=== PATIENT | male | born 1975 | race Caucasian/White ===

== ENCOUNTER 2016-10-28 14:40 | Emergency (ER) | payer SELFPAY ==
[~2016-10-28] VITALS: Ht 175.3 cm; Wt 70.0 kg
[~2016-10-28 14:40] MED LIST: CIPR500T4 PO; MOBI15TA PO; ULTR50TA PO
[2016-10-28 14:45] VITALS: BP 133/85; PULSE 73; RESP 16; TEMP 97.8; O2SAT 100
[2016-10-28] MEDS ORDERED: PROPARACAINE HCL 0.5% OPHT SOLN 15 ML BTL EACH EYE ONE (15:45)
--- NOTE | 2016-10-28 15:49 | PD ---
HPI Chief Complaint: Eye Problems/Injury Time Seen by Provider: 15:44 Travel History International Travel<30 days: No Contact w/Intl Traveler<30days: No Traveled to known affect area: No History of Present Illness HPI 41-year-old male presents to the emergency room for evaluation of left eye foreign body sensation, irritation, redness, and tearing. Patient was using a wet trimmer and accidentally hit a rock. He believes a small piece of rock flung up and struck him in the eye. Patient states he saw the large rock coming but could not move in time. He was not wearing safety goggles. He believes there is a hole in his eye. He reports mild blurriness but denies purulent drainage. Patient came straight to the emergency room and has not done anything for his symptoms. He does not wear contacts. [facility] Past Medical History Diminished Hearing: No Musculoskeletal: Yes (chronic Low back pain from sciatica) Tetanus Vaccination: < 5 Years Influenza Vaccination: No Social History Alcohol Use: No Tobacco Use: Yes (1 ppd) Substance Use: Yes (MARIJUANA) Allergies-Medications (Allergen,Severity, Reaction): Coded Allergies: Darvocet-N 100 (Verified Allergy, Mild, RASH, 10/28/16) Reported Meds & Prescriptions Reported Meds & Active Scripts Active No Active Prescriptions or Reported Medications Review of Systems Except as stated in HPI: all other systems reviewed are Neg Physical Exam Narrative GENERAL: Well-nourished, well-developed male in no acute distress. Afebrile. Ambulatory. SKIN: Focused skin assessment warm/dry. HEAD: Normocephalic. EYES: PERRL, EOMI. No purulent discharge. Moderate tearing and injection of the left eye. No scleral icterus. Visual acuity is 20/20 in the right and 20/ 30 in the left. Fluorescein staining reveals a large corneal abrasion at the 3 o'clock position of the left eye. There is a smaller corneal abrasion at the 8 o'clock position. Negative Chito sign. Upper and lower eyelid eversion reveals no foreign body. NECK: Supple, trachea midline. No JVD or lymphadenopathy. CARDIOVASCULAR: Regular rate and rhythm without murmurs, gallops, or rubs. RESPIRATORY: Breath sounds equal bilaterally. No accessory muscle use. PSYCHIATRIC: No delusional thought processes. No hallucinations. Data Data Last Documented VS Vital Signs Date Time Temp Pulse Resp B/P Pulse Ox O2 Delivery O2 Flow Rate FiO2 10/28/16 15:06 16 10/28/16 14:45 97.8 73 133/85 100 Orders Proparacaine 0.5% Opth Soln (Alcaine 0.5 (10/28/16 15:45) MDM Medical Decision Making Medical Screen Exam Complete: Yes Emergency Medical Condition: Yes Medical Record Reviewed: Yes Differential Diagnosis Corneal abrasion versus ulceration versus conjunctivitis Narrative Course 41-year-old male presents to the emergency room for evaluation of left eye foreign body sensation, pain, redness, and tearing after getting struck in the eye by a rock prior to arrival. Physical exam reveals a large corneal abrasion at the 3 o'clock position of the left thigh and a smaller corneal abrasion at the o'clock position. Negative Chito sign. Visual acuity is 20/30 in the left and 20/20 in the right. No foreign body appreciated. Patient will be discharged with prescription for erythromycin eye ointment and told to follow- up with an pr intern or return to the emergency room for worsening symptoms. He understands and agrees to plan. Diagnosis Primary Impression: Corneal abrasion Qualified Code: S05.02XA - Corneal abrasion, left, initial encounter Referrals: Tangela Bernal MD Patient Instructions: Corneal Abrasion (ED), General Instructions Additional Instructions: Rest and drink plenty of fluids. Use erythromycin ointment as directed, for 5 days Take ibuprofen with food as directed, as needed for pain. Follow-up with an pr intern. Return to the emergency room for worsening symptoms. Med/Other Pt SpecificInfo: Prescription(s) given Scripts Erythromycin Opth Oint 5 Mg/Gm Oint1 Applic LEFT EYE QID #1 TUBE Ref 0 Prov:Sachin Worthy MD 10/28/16 Disposition: 01 DISCHARGE HOME Condition: Stable Emi Cisse October 28, 2016 15:49
[2016-10-28] MEDS ORDERED: ERYTOIN10 LEFT EYE (15:59)
== END 2016-10-28 16:10 | disposition home or self-care (01) ==
LOC: PHEFT 14:40
DX: S05.02XA Injury of conjunctiva and corneal abrasion without foreign body, left eye, initial encounter (principal); F17.200 Nicotine dependence, unspecified, uncomplicated; Z88.5 Allergy status to narcotic agent; W22.8XXA Striking against or struck by other objects, initial encounter
CPT/HCPCS: 99283

== ENCOUNTER 2017-03-24 13:08 | Emergency (ER) | payer SELFPAY ==
[~2017-03-24] VITALS: Ht 162.6 cm; Wt 68.2 kg
[~2017-03-24 13:08] MED LIST changes: -CIPR500T4 PO; +ERYTOIN10 LEFT EYE; -MOBI15TA PO; -ULTR50TA PO
[2017-03-24 13:11] VITALS: BP 121/75; PULSE 71; RESP 18; TEMP 97.9; O2SAT 98
--- NOTE | 2017-03-24 14:08 | PD ---
HPI Chief Complaint: Dizziness Time Seen by Provider: 13:56 Travel History International Travel<30 days: No Contact w/Intl Traveler<30days: No Traveled to known affect area: No History of Present Illness HPI This 41-year-old male says he been feeling lightheaded for the last few days. He feels like he might pass out. He has not been having any pain. He has no fever or chills. Recall feeling like this before. She did this on no medications. Drugs. He does smoke one pack of cigarettes a day. He has occasional headaches which she has had for many years. There is been no recent change in his weight. Denies polyuria polydipsia PFSH Past Medical History Diminished Hearing: No Musculoskeletal: Yes (chronic Low back pain from sciatica) Social History Alcohol Use: No Tobacco Use: Yes (1 ppd) Substance Use: Yes (MARIJUANA) Allergies-Medications (Allergen,Severity, Reaction): Coded Allergies: acetaminophen (Unverified Allergy, Mild, RASH, 03/24/17) propoxyphene (Unverified Allergy, Mild, RASH, 03/24/17) Reported Meds & Prescriptions Reported Meds & Active Scripts Active Erythromycin Opth Oint 5 Mg/Gm Oint 1 Applic LEFT EYE QID Review of Systems General / Constitutional: No: Fever, Chills Eyes: No: Diploplia, Blurred Vision HENT: Positive: Headaches Cardiovascular: No: Chest Pain or Discomfort, Palpitations Respiratory: No: Cough, Shortness of Breath Gastrointestinal: No: Nausea, Vomiting Genitourinary: No: Urgency, Frequency Musculoskeletal: No: Myalgias Neurologic: Positive: Weakness Hematologic/Lymphatic: No: Easy Bruising Physical Exam Narrative GENERAL: [-] SKIN: Focused skin assessment warm/dry. HEAD: Atraumatic. Normocephalic. EYES: Pupils equal and round. No scleral icterus. No injection or drainage. ENT: No nasal bleeding or discharge. Mucous membranes pink and moist. NECK: Trachea midline. No JVD. CARDIOVASCULAR: Regular rate and rhythm. No murmur appreciated. RESPIRATORY: No accessory muscle use. Clear to auscultation. Breath sounds equal bilaterally. GASTROINTESTINAL: Abdomen soft, non-tender, nondistended. Hepatic and splenic margins not palpable. MUSCULOSKELETAL: No obvious deformities. No clubbing. No cyanosis. No edema. NEUROLOGICAL: Awake and alert. No obvious cranial nerve deficits. Motor grossly within normal limits. Normal speech. PSYCHIATRIC: Appropriate mood and affect; insight and judgment normal. Data Data Last Documented VS Vital Signs Date Time Temp Pulse Resp B/P (MAP) Pulse Ox O2 Delivery O2 Flow Rate FiO2 03/24/17 13:11 97.9 71 18 121/75 (90) 98 Orders Orders Complete Blood Count With Diff (03/24/17 14:05) Basic Metabolic Panel (Bmp) (03/24/17 14:05) Labs Laboratory Tests Test 03/24/17 14:20 White Blood Count 7.3 TH/MM3 Red Blood Count 5.20 MIL/MM3 Hemoglobin 15.2 GM/DL Hematocrit 46.3 % Mean Corpuscular Volume 89.0 FL Mean Corpuscular Hemoglobin 29.3 PG Mean Corpuscular Hemoglobin Concent 32.9 % Red Cell Distribution Width 12.5 % Platelet Count 236 TH/MM3 Mean Platelet Volume 8.0 FL Neutrophils (%) (Auto) 51.8 % Lymphocytes (%) (Auto) 40.1 % Monocytes (%) (Auto) 6.2 % Eosinophils (%) (Auto) 0.6 % Basophils (%) (Auto) 1.3 % Neutrophils # (Auto) 3.8 TH/MM3 Lymphocytes # (Auto) 2.9 TH/MM3 Monocytes # (Auto) 0.5 TH/MM3 Eosinophils # (Auto) 0.0 TH/MM3 Basophils # (Auto) 0.1 TH/MM3 CBC Comment DIFF FINAL Differential Comment Blood Urea Nitrogen 13 MG/DL Creatinine 0.93 MG/DL Random Glucose 149 MG/DL Calcium Level 9.1 MG/DL Sodium Level 134 MEQ/L Potassium Level 3.9 MEQ/L Chloride Level 99 MEQ/L Carbon Dioxide Level 29.5 MEQ/L Anion Gap 6 MEQ/L Estimat Glomerular Filtration Rate 89 ML/MIN [facility] Medical Decision Making Medical Screen Exam Complete: Yes Emergency Medical Condition: Yes Medical Record Reviewed: Yes Differential Diagnosis Differential includes anemia, electrolyte imbalance, diabetes Narrative Course Lab work was done and has not revealed the diagnosis. Blood sugar slightly elevated at 149. This is not a fasting sample. Diagnosis Primary Impression: Weakness Disposition: 01 DISCHARGE HOME Condition: Stable Porfirio Oliva MD Mar 24, 2017 14:08
[2017-03-24 14:28] LABS: AUTOMATED NEUTROPHIL # 3.8 TH/MM3 (1.8-7.7); BASOPHIL # 0.1 TH/MM3 (0-0.2); BASOPHIL % 1.3 % (0.0-2.0); EOSINOPHIL % 0.6 % (0.0-4.0); HEMATOCRIT 46.3 % (39.0-51.0); HEMOGLOBIN 15.2 GM/DL (13.0-17.0); LYMPH % 40.1 % (9.0-44.0); LYMPHOCYTE # 2.9 TH/MM3 (1.0-4.8); MEAN CORPUSCULAR HEMOGLOBIN 29.3 PG (27.0-34.0); MEAN CORPUSCULAR HGB CONC 32.9 % (32.0-36.0); MONO % 6.2 % (0.0-8.0); MONOCYTE # 0.5 TH/MM3 (0-0.9); NEUT % 51.8 % (16.0-70.0); PLATELET COUNT 236 TH/MM3 (150-450); RED CELL DISTRIBUTION WIDTH 12.5 % (11.6-17.2); WHITE BLOOD COUNT 7.3 TH/MM3 (4.0-11.0)
[2017-03-24 14:38] LABS: CALCIUM 9.1 MG/DL (8.5-10.1)
[2017-03-24 14:39] LABS: BICARBONATE 29.5 MEQ/L (21.0-32.0)
[2017-03-24 14:42] LABS: CREATININE 0.93 MG/DL (0.60-1.30)
[2017-03-24 15:39] VITALS: BP 116/67
== END 2017-03-24 15:40 | disposition home or self-care (01) ==
LOC: PHED 13:08
DX: R53.1 Weakness (principal); Z72.0 Tobacco use; R51 Headache; G89.29 Other chronic pain; M54.5 Low back pain
CPT/HCPCS: 80048; 85025; 99283

== ENCOUNTER 2017-11-04 12:19 | Emergency (ER) | payer SELFPAY ==
[~2017-11-04] VITALS: Ht 175.3 cm; Wt 62.0 kg
[2017-11-04 12:22] VITALS: BP 123/77; PULSE 83; RESP 17; TEMP 97.9; O2SAT 100
== END 2017-11-04 14:15 | disposition left against medical advice (07) ==
LOC: NETRI 12:19
DX: R21 Rash and other nonspecific skin eruption (principal); Z53.21 Procedure and treatment not carried out due to patient leaving prior to being seen by health care provider
CPT/HCPCS: 99281

== ENCOUNTER 2017-11-08 17:18 | Emergency (ER) | payer SELFPAY ==
[2017-11-08 17:37] VITALS: BP 129/76; PULSE 86; RESP 20; TEMP 97.5; O2SAT 100
[2017-11-08] MEDS ORDERED: SODIUM CHLORIDE 0.9% FLUSH 10 ML FLUSH IV FLUSH PRN (18:15)
[2017-11-08 18:17] LABS: AUTOMATED NEUTROPHIL # 4.2 TH/MM3 (1.8-7.7); BASOPHIL % 0.6 % (0.0-2.0); EOSINOPHIL # 0.1 TH/MM3 (0-0.4); EOSINOPHIL % 1.1 % (0.0-4.0); HEMATOCRIT 37.9 % (39.0-51.0); MEAN CELL VOLUME 91.4 FL (80.0-100.0); MEAN CORPUSCULAR HEMOGLOBIN 31.4 PG (27.0-34.0); MEAN CORPUSCULAR HGB CONC 34.4 % (32.0-36.0); MEAN PLATELET VOLUME 6.9 FL (7.0-11.0); MONO % 7.7 % (0.0-8.0); MONOCYTE # 0.5 TH/MM3 (0-0.9); NEUT % 61.6 % (16.0-70.0); PLATELET COUNT 281 TH/MM3 (150-450); RED BLOOD COUNT 4.15 MIL/MM3 (4.50-5.90); RED CELL DISTRIBUTION WIDTH 12.4 % (11.6-17.2); WHITE BLOOD COUNT 6.8 TH/MM3 (4.0-11.0)
[2017-11-08 18:24] LABS: CHLORIDE 101 MEQ/L (98-107); SODIUM (NA) 136 MEQ/L (136-145)
[2017-11-08 18:27] LABS: CALCIUM 8.2 MG/DL (8.5-10.1)
[2017-11-08 18:28] LABS: ALBUMIN 3.1 GM/DL (3.4-5.0); BLOOD UREA NITROGEN 11 MG/DL (7-18); GLUCOSE,RANDOM 84 MG/DL (74-106)
[2017-11-08 18:31] LABS: ALT (GPT) 113 U/L (12-78); AST (GOT) 70 U/L (15-37); CREATININE 0.81 MG/DL (0.60-1.30); GLOMERULAR FILTRATION RATE 104 ML/MIN (>89)
[2017-11-08 18:32] LABS: TOTAL BILIRUBIN ADULT 0.4 MG/DL (0.2-1.0)
[2017-11-08 18:33] LABS: TOTAL PROTEIN 7.7 GM/DL (6.4-8.2)
[2017-11-08 18:34] LABS: ALKALINE PHOSPHATASE 155 U/L (45-117)
--- NOTE | 2017-11-08 18:34 | PD ---
HPI Chief Complaint: Skin Problem Time Seen by Provider: 17:57 Travel History International Travel<30 days: No Contact w/Intl Traveler<30days: No Traveled to known affect area: No History of Present Illness HPI Patient 42-year-old male presents emergency department for evaluation of left lower extremity swelling and lesion. Patient was here a few days ago for similar but left without being seen. The patient states that about a week ago he was poked by a thorn plant, he did notice an abscess a few days ago but is gradually gotten worse but has started draining. He became alarmed when he saw swelling of his foot and lower extremity distal to the wound as well. No history of blood clots, no fevers no cough no congestion and overall he feels well. He does complain of some mild left inguinal pain as well. Symptoms moderate, gradually worsening, context and associated signs symptoms as above per [facility] Past Medical History Diminished Hearing: No Musculoskeletal: Yes (chronic Low back pain from sciatica) Social History Alcohol Use: No Tobacco Use: Yes (1 ppd) Substance Use: Yes (MARIJUANA) Allergies-Medications (Allergen,Severity, Reaction): Coded Allergies: acetaminophen (Verified Allergy, Mild, RASH, 11/08/17) propoxyphene (Verified Allergy, Mild, RASH, 11/08/17) Reported Meds & Prescriptions Reported Meds & Active Scripts Active Doxycycline Hyclate 100 Mg Cap 100 Mg PO BID Review of Systems Except as stated in HPI: all other systems reviewed are Neg Physical Exam Narrative GENERAL: Well-developed well-nourished no obvious distress SKIN: Focused skin assessment warm/dry. There is a half dollar sized abscess to the anteriolateral aspect of the left proximal calf. There is some lymphadenopathy in the bilateral inguinal areas. Minimal tenderness. There is cellulitis surrounding the abscess and extending distally down to the ankle. The cellulitis is not circumferential. HEAD: Atraumatic. Normocephalic. EYES: Pupils equal and round. No scleral icterus. No injection or drainage. ENT: No nasal bleeding or discharge. Mucous membranes pink and moist. NECK: Trachea midline. No JVD. CARDIOVASCULAR: Regular rate and rhythm. No murmur appreciated. RESPIRATORY: No accessory muscle use. Clear to auscultation. Breath sounds equal bilaterally. GASTROINTESTINAL: Abdomen soft, non-tender, nondistended. Hepatic and splenic margins not palpable. MUSCULOSKELETAL: No obvious deformities. No clubbing. No cyanosis. Fairly significant edema on the left lower extremity from the lesion distally into the foot, 2-3+ and pitting. Pulses motor and sensory intact distally in all 4 extremities. NEUROLOGICAL: Awake and alert. No obvious cranial nerve deficits. Motor grossly within normal limits. Normal speech. PSYCHIATRIC: Appropriate mood and affect; insight and judgment normal. Data Data Last Documented VS Vital Signs Date Time Temp Pulse Resp B/P (MAP) Pulse Ox O2 Delivery O2 Flow Rate FiO2 11/08/17 20:25 11/08/17 20:17 72 16 100 Room Air 11/08/17 17:37 97.5 Orders Orders Complete Blood Count With Diff (11/08/17 18:05) Comprehensive Metabolic Panel (11/08/17 18:05) Iv Access Insert/Monitor (11/08/17 18:05) Ecg Monitoring (11/08/17 18:05) Oximetry (11/08/17 18:05) Sodium Chloride 0.9% Flush (Ns Flush) (11/08/17 18:15) Tibia/Fibula (Ap/Lat) (11/08/17 ) Us Leg Venous Doppler (11/08/17 18:05) Doxycycline (Vibratab) (11/08/17 19:00) Ed Discharge Order (11/08/17 20:14) Labs Laboratory Tests Test 11/08/17 18:15 White Blood Count 6.8 TH/MM3 Red Blood Count 4.15 MIL/MM3 Hemoglobin 13.0 GM/DL Hematocrit 37.9 % Mean Corpuscular Volume 91.4 FL Mean Corpuscular Hemoglobin 31.4 PG Mean Corpuscular Hemoglobin Concent 34.4 % Red Cell Distribution Width 12.4 % Platelet Count 281 TH/MM3 Mean Platelet Volume 6.9 FL Neutrophils (%) (Auto) 61.6 % Lymphocytes (%) (Auto) 29.0 % Monocytes (%) (Auto) 7.7 % Eosinophils (%) (Auto) 1.1 % Basophils (%) (Auto) 0.6 % Neutrophils # (Auto) 4.2 TH/MM3 Lymphocytes # (Auto) 2.0 TH/MM3 Monocytes # (Auto) 0.5 TH/MM3 Eosinophils # (Auto) 0.1 TH/MM3 Basophils # (Auto) 0.0 TH/MM3 CBC Comment DIFF FINAL Differential Comment Blood Urea Nitrogen 11 MG/DL Creatinine 0.81 MG/DL Random Glucose 84 MG/DL Total Protein 7.7 GM/DL Albumin 3.1 GM/DL Calcium Level 8.2 MG/DL Alkaline Phosphatase 155 U/L Aspartate Amino Transf (AST/SGOT) 70 U/L Alanine Aminotransferase (ALT/SGPT) 113 U/L Total Bilirubin 0.4 MG/DL Sodium Level 136 MEQ/L Potassium Level 3.2 MEQ/L Chloride Level 101 MEQ/L Carbon Dioxide Level 30.0 MEQ/L Anion Gap 5 MEQ/L Estimat Glomerular Filtration Rate 104 ML/MIN MDM Medical Decision Making Medical Screen Exam Complete: Yes Emergency Medical Condition: Yes Differential Diagnosis Cellulitis, abscess, DVT, sepsis. Narrative Course Well-appearing male, discussed smoking cessation with him. Vital signs are reassuring as well as his labs. I discussed with the patient that currently he is on the borderline of being admitted to the hospital, is fairly adamant that he does not want to stay from the onset of the encounter. I think that given his findings on x-ray and ultrasound are indicated to rule out foreign body or DVT. Both of which were negative. I discussed that we will place him on doxycycline for now for fairly broad-spectrum coverage and I recommended that he return to the emergency department 48 hours for wound check. The abscess is able to express purulent material, I do not appreciate significant fluid collection is no indication for incision drainage at this time. He will return in 48 hours for wound check. Diagnosis Primary Impression: Cellulitis and abscess of left leg Patient Instructions: Cellulitis (DC), General Instructions Additional Instructions: Return to ED in 48 hours for wound check. Med/Other Pt SpecificInfo: Prescription(s) given Scripts Doxycycline Hyclate (Doxycycline Hyclate) 100 Mg Cap 100 MG PO BID for Infection, #28 CAP 0 Refills Prov: Robert Harrell MD 11/08/17 Disposition: 01 DISCHARGE HOME Condition: Stable Robert Harrell MD Nov 08, 2017 18:34
[2017-11-08] MEDS ORDERED: DOXYCYCLINE HYCLATE 100 MG TAB PO ONE (19:00)
--- NOTE | 2017-11-08 19:11 | RADRPT ---
EXAM DATE: 11/08/2017 6:40 PM EDT AGE/SEX: 42 years / Male INDICATIONS: Stabbed by a cactus one week ago on lateral left lower leg. Entire left lower leg is r ed and swollen now. CLINICAL DATA: This is the patient's initial encounter. Patient reports that signs and symptoms have been present for 1 week and indicates a pain score of 8/10. MEDICAL/SURGICAL HISTORY: None. None. COMPARISON: No prior exams available for comparison. FINDINGS: No definite fractures, or dislocations are identified. No definite lytic or sclerotic les ion is seen. Soft tissue swelling and edema is seen. No definite radiopaque foreign body is seen for technique. CONCLUSION: Unremarkable study except for soft tissue swelling. Electronically signed by: Jose Monroe MD 11/08/2017 7:10 PM EDT
[2017-11-08] MEDS ORDERED: DOXY100C PO ×2 (19:39→20:03)
--- NOTE | 2017-11-08 20:16 | RADRPT ---
EXAM DATE: 11/08/2017 8:00 PM EDT AGE/SEX: 42 years / Male INDICATIONS: Left leg swelling. CLINICAL DATA: This is the patient's initial encounter. Patient reports that signs and symptoms have been present for 1 week and indicates a pain score of 6/10. MEDICAL/SURGICAL HISTORY: . Back pain. Left leg swelling. Arthroscopy. COMPARISON: No prior exams available for comparison. TECHNIQUE: Venous ultrasound of both lower extremities was performed from the inguinal ligament to t he proximal calf. Real-time, color Doppler and spectral tracing, compression and augmentation techni ques were used. FINDINGS: There is normal compressibility of the deep venous system from the inguinal region to the proximal ca lf. No echogenic clot is seen in the lumen of the common femoral, femoral, popliteal, and posterior tibial veins. There is a normal response of the venous system to proximal and distal augmentation an d respiration. There is a hypoechoic masslike area measures 1.4 cm adjacent to the left iliac vein could potentially be a lymph node of uncertain etiology. CONCLUSION: 1. No DVT. 2. Probable lymph node adjacent to the left iliac vein nonspecific. Electronically signed by: Jose Monroe MD 11/08/2017 8:14 PM EDT
[2017-11-08 20:17] VITALS: BP 132/77; PULSE 72; RESP 16; O2SAT 100
== END 2017-11-08 20:26 | disposition home or self-care (01) ==
LOC: PHED 17:18
DX: L03.116 Cellulitis of left lower limb (principal); L02.416 Cutaneous abscess of left lower limb; F17.200 Nicotine dependence, unspecified, uncomplicated; F12.90 Cannabis use, unspecified, uncomplicated; Z88.6 Allergy status to analgesic agent; Z88.8 Allergy status to other drugs, medicaments and biological substances
CPT/HCPCS: 73590; 80053; 85025; 93971